=== PATIENT | male | born 1970 | race Caucasian/White ===

== ENCOUNTER 2016-11-21 10:52 | Day surgery (SDC) | payer OTHER ==
[~2016-11-21] VITALS: Ht 162.6 cm; Wt 69.4 kg
[~2016-11-21 10:52] MED LIST: CLEOCIN300 MG PO; NAPROSYN500 MG PO; NEURONTIN300 MG PO; NO HOME MEDS; PERCOCET 5/31 TABLET PO; VALIUM5 MG PO
== END 2016-11-21 12:40 | disposition home or self-care (01) ==
LOC: PAIN 10:52 → SDC 11:45 → PAIN 12:40
DX: M47.26 Other spondylosis with radiculopathy, lumbar region (principal); Z87.891 Personal history of nicotine dependence; G89.29 Other chronic pain; L40.9 Psoriasis, unspecified; Z91.030 Bee allergy status
CPT/HCPCS: J1030; J2250; J3010; S0020

== ENCOUNTER 2016-11-28 07:48 | Day surgery (SDC) | payer OTHER ==
[~2016-11-28] VITALS: Ht 162.6 cm; Wt 69.4 kg
[~2016-11-28 07:48] MED LIST changes: +EPIPEN ADU0.3 MG/0.3 IM
== END 2016-11-28 09:32 | disposition home or self-care (01) ==
LOC: PAIN 07:48 → SDC 08:15 → PAIN 08:15
DX: M47.26 Other spondylosis with radiculopathy, lumbar region (principal); M51.16 Intervertebral disc disorders with radiculopathy, lumbar region; M54.5 Low back pain; G89.29 Other chronic pain; Z87.891 Personal history of nicotine dependence; Z79.891 Long term (current) use of opiate analgesic
CPT/HCPCS: J1030; J2250; J3010; S0020

== ENCOUNTER 2017-01-09 13:24 | Day surgery (SDC) | payer OTHER ==
[~2017-01-09] VITALS: Ht 162.6 cm; Wt 69.4 kg
== END 2017-01-09 15:20 | disposition home or self-care (01) ==
LOC: PAIN 13:24 → SDC 13:45 → PAIN 15:20
PROC: 3E0S33Z Introduction of Anti-inflammatory into Epidural Space, Percutaneous Approach (ICD-10-PCS; principal; 2017-01-09)
DX: M47.26 Other spondylosis with radiculopathy, lumbar region (principal); F41.9 Anxiety disorder, unspecified; G89.29 Other chronic pain; M53.9 Dorsopathy, unspecified; M99.83 Other biomechanical lesions of lumbar region; L40.9 Psoriasis, unspecified; Z87.891 Personal history of nicotine dependence; Z79.899 Other long term (current) drug therapy; Z91.030 Bee allergy status
CPT/HCPCS: J1030; J2250; J3010

== ENCOUNTER 2017-02-06 17:53 | Emergency (ER) | payer OTHER ==
[~2017-02-06] VITALS: Ht 165.1 cm; Wt 67.6 kg
[2017-02-06 18:42] LABS: HEMATOCRIT 45.6 % (38.0-50.0); MCH 30.2 PG (29.0-34.0); MCHC 33.3 G/DL (30.0-36.0); MCV 90.7 FL (86-99); PLATELET COUNT 277 K/uL (156-360); RBC DIS.WIDTH-CV 11.9 % (11.8-14.6); RBC DIS.WIDTH-SD 39.8 % (39-53); RED BLOOD COUNT 5.03 M/uL (4.00-5.50); WHITE BLOOD COUNT 8.9 K/uL (4.1-10.2)
[2017-02-06 18:51] LABS: CHLORIDE 108 mEq/L (99-109); POTASSIUM 3.9 mEq/L (3.7-5.4); SODIUM 146 mEq/L (136-147)
[2017-02-06 18:52] LABS: GLUCOSE 70 mg/dL (70-99)
[2017-02-06 18:54] LABS: ANION GAP 11 MEQ/L (2-14)
[2017-02-06 18:56] LABS: GFR ESTIMATE (CALCULATED) > 59 mL/min/
[2017-02-06 18:57] LABS: UREA NITROGEN (BUN) 15 mg/dL (9-23)
[2017-02-06 19:12] LABS: ADD MIUA? YES; BILIRUBIN NEGATIVE; BLOOD LARGE; COLOR YELLOW ((YELLOW)); GLUCOSE (STRIP) NEGATIVE; KETONES NEGATIVE; LEUKOCYTES NEGATIVE; NITRITE NEGATIVE; PROTEIN (STRIP) NEGATIVE; SPECIFIC GRAVITY 1.018 (1.000-1.030); UROBILINOGEN 0.2 MG/DL (0.2-1.0)
[2017-02-06 19:18] LABS: BACTERIA NONE SEEN /HPF; EPITHELIAL CELLS NONE SEEN /HPF; MUCUS TRACE /LPF; RED BLOOD CELLS TNTC /HPF (0-5); UCUL ADDED? YES
[2017-02-06 21:40] VITALS: BP 132/88
== END 2017-02-06 21:40 | disposition home or self-care (01) ==
LOC: EME 17:53
DX: R10.9 Unspecified abdominal pain (principal); R31.9 Hematuria, unspecified; Z87.442 Personal history of urinary calculi; Z87.891 Personal history of nicotine dependence
CPT/HCPCS: 74176; 80048; 81003; 85027; 87086; 99281; 99285; J3010

== ENCOUNTER 2017-07-27 10:46 | Emergency (ER) | payer BC ==
[~2017-07-27] VITALS: Ht 165.1 cm; Wt 70.8 kg
[2017-07-27 11:25] LABS: MCH 30.7 PG (29.0-34.0); MCHC 33.3 G/DL (30.0-36.0); PLATELET COUNT 243 K/uL (156-360); RBC DIS.WIDTH-CV 11.9 % (11.8-14.6); RED BLOOD COUNT 5.22 M/uL (4.00-5.50); WHITE BLOOD COUNT 7.8 K/uL (4.1-10.2)
[2017-07-27 11:36] LABS: ALBUMIN 4.5 g/dL (3.2-4.8); CHLORIDE 111 mEq/L (99-109); POTASSIUM 5.1 mEq/L (3.7-5.4); SODIUM 144 mEq/L (136-147)
[2017-07-27 11:39] LABS: GLUCOSE 99 mg/dL (70-99); TOTAL PROTEIN 7.3 g/dL (6.4-8.3)
[2017-07-27 11:41] LABS: TOTAL BILIRUBIN 0.7 mg/dL (0.0-1.0)
[2017-07-27 11:42] LABS: ALKALINE PHOSPHATASE 91 IU/L (3-129)
[2017-07-27 11:43] LABS: CREATININE 0.9 mg/dL (0.6-1.3); GFR ESTIMATE (CALCULATED) > 59 mL/min/ (58.99-99999)
[2017-07-27 11:44] LABS: AST (GOT) 20 IU/L (2-34); DIRECT BILIRUBIN 0.2 mg/dL (0.0-0.3); UREA NITROGEN (BUN) 18 mg/dL (9-23)
[2017-07-27 11:45] LABS: ALT (GPT) 20 IU/L (3-49)
[2017-07-27 11:46] LABS: LIPASE 133 U/L (1.0-51.0)
[2017-07-27] MEDS ORDERED: ZOFRAN ODT4 MG PO (12:44)
[2017-07-27] MEDS ORDERED: FLOMAX0.4 MG PO (12:44)
[2017-07-27] MEDS ORDERED: PERCOCET 5/31 TABLET PO (12:44)
[2017-07-27 13:29] LABS: APPEARANCE CLOUDY ((CLEAR)); BILIRUBIN NEGATIVE; BLOOD LARGE; COLOR YELLOW ((YELLOW)); GLUCOSE (STRIP) NEGATIVE; KETONES NEGATIVE; LEUKOCYTES TRACE; NITRITE NEGATIVE; PROTEIN (STRIP) 30; SPECIFIC GRAVITY 1.023 (1.000-1.030)
[2017-07-27 13:36] LABS: BACTERIA RARE /HPF; CALCIUM OXALATE CRYSTALS 3+ /HPF; EPITHELIAL CELLS RARE /HPF; HYALINE CASTS 0-5 /LPF; MUCUS 4+ /LPF; RED BLOOD CELLS TNTC /HPF (0-5); UCUL ADDED? YES
[2017-07-27 13:58] VITALS: BP 132/78
== END 2017-07-27 14:00 | disposition home or self-care (01) ==
LOC: EME 10:46
DX: N13.2 Hydronephrosis with renal and ureteral calculous obstruction (principal); K40.90 Unilateral inguinal hernia, without obstruction or gangrene, not specified as recurrent; Z79.891 Long term (current) use of opiate analgesic; Z87.891 Personal history of nicotine dependence; Z96.0 Presence of urogenital implants; Z87.442 Personal history of urinary calculi
CPT/HCPCS: 74176; 80048; 80076; 81003; 83690; 85027; 87086; 99281; 99285; J1885; J2405; J7030

== ENCOUNTER 2017-10-23 19:52 | Emergency (ER) | payer BC ==
[~2017-10-23] VITALS: Ht 165.1 cm; Wt 67.7 kg
[~2017-10-23 19:52] MED LIST changes: +FLOMAX0.4 MG PO; +ZOFRAN ODT4 MG PO
[2017-10-23 21:06] VITALS: BP 116/85
== END 2017-10-23 21:07 | disposition home or self-care (01) ==
LOC: EME 19:52
DX: S90.122A Contusion of left lesser toe(s) without damage to nail, initial encounter (principal); W22.03XA Walked into furniture, initial encounter
CPT/HCPCS: 73630; 99281; 99284

== ENCOUNTER 2017-11-04 22:43 | Inpatient (IN) | payer BC ==
[~2017-11-04] VITALS: Ht 165.1 cm; Wt 73.6 kg
[2017-11-05 06:15] VITALS: BP 130/70
[2017-11-05 13:00] VITALS: BP 159/90
[2017-11-05 15:17] VITALS: BP 141/84
[2017-11-05 20:10] VITALS: BP 133/81
[2017-11-05 23:45] VITALS: BP 123/69
[2017-11-06 04:07] VITALS: BP 123/75
[2017-11-06 07:52] VITALS: BP 131/84
[2017-11-06 12:09] VITALS: BP 144/87
[2017-11-06 16:21] VITALS: BP 134/85
[2017-11-06 19:54] VITALS: BP 133/86
[2017-11-06 23:36] VITALS: BP 127/81
[2017-11-07 08:04] VITALS: BP 109/65
[2017-11-07 12:29] VITALS: BP 125/71
[2017-11-07 15:42] VITALS: BP 117/77
[2017-11-07] MEDS ORDERED: GABAPENTIN300 MG PO (16:50)
[2017-11-07] MEDS ORDERED: DECADRON2 MG PO (16:50)
[2017-11-07] MEDS ORDERED: PERCOCET 5/31 TABLET PO (16:50)
[2017-11-07] MEDS ORDERED: DIAZEPAM10 MG PO (16:53)
[2017-11-07] MEDS ORDERED: ENDOCET 5-3251 EACH PO (16:57)
== END 2017-11-07 17:57 | disposition home health service (06) | DRG 460 ==
LOC: ENRESERV 22:43 → 2SOUTH 11-05 05:44 → ENRESERV 11-05 10:52 → EDSTATUS 11-05 11:01 → 2SOUTH 11-05 11:02 → SDC 11-05 12:38 → 3EAST 11-05 12:38
PROC: 0SG30A0 Fusion of Lumbosacral Joint with Interbody Fusion Device, Anterior Approach, Anterior Column, Open Approach (ICD-10-PCS; principal; 2017-11-05)
DX: M47.26 Other spondylosis with radiculopathy, lumbar region (principal); M99.03 Segmental and somatic dysfunction of lumbar region; M48.061 Spinal stenosis, lumbar region without neurogenic claudication; M54.9 Dorsalgia, unspecified; R29.898 Other symptoms and signs involving the musculoskeletal system; M21.372 Foot drop, left foot; M46.1 Sacroiliitis, not elsewhere classified; Z87.891 Personal history of nicotine dependence
CPT/HCPCS: 72020; 72100; 76000; 86850; 86900; 86901; C1713; J0131; J0690; J1100; J1170; J1885; J2250; J2405; J2710; J3010; J3480; J7643

== ENCOUNTER 2017-11-21 22:09 | Emergency (ER) | payer BC ==
[~2017-11-21] VITALS: Ht 165.1 cm; Wt 70.6 kg
[~2017-11-21 22:09] MED LIST changes: +DECADRON2 MG PO; +DIAZEPAM10 MG PO; +ENDOCET 5-3251 EACH PO; +GABAPENTIN300 MG PO
[2017-11-21 23:32] LABS: HEMATOCRIT 40.5 % (38.0-50.0); HEMOGLOBIN 13.8 G/DL (12.5-16.6); MCH 31.5 PG (29.0-34.0); MCHC 34.1 G/DL (30.0-36.0); MCV 92.5 FL (86-99); PLATELET COUNT 268 K/uL (156-360); RBC DIS.WIDTH-CV 12.3 % (11.8-14.6); RBC DIS.WIDTH-SD 41.4 % (39-53); RED BLOOD COUNT 4.38 M/uL (4.00-5.50); WHITE BLOOD COUNT 17.5 K/uL (4.1-10.2)
[2017-11-21 23:40] LABS: CHLORIDE 102 mEq/L (99-109); POTASSIUM 4.5 mEq/L (3.7-5.4); SODIUM 140 mEq/L (136-147)
[2017-11-21 23:41] LABS: GLUCOSE 128 mg/dL (70-99)
[2017-11-21 23:45] LABS: CREATININE 0.7 mg/dL (0.6-1.3); GFR ESTIMATE (CALCULATED) > 59 mL/min/ (58.99-99999)
[2017-11-21 23:46] LABS: UREA NITROGEN (BUN) 19 mg/dL (9-23)
[2017-11-22 00:04] VITALS: BP 108/70
== END 2017-11-22 00:05 | disposition home or self-care (01) ==
LOC: EME 22:09
PROVIDERS: Nurse Practitioner Family
DX: M79.662 Pain in left lower leg (principal); M62.838 Other muscle spasm; Z98.1 Arthrodesis status
CPT/HCPCS: 80048; 85027; 93971; 99281; 99284

== ENCOUNTER 2018-01-06 22:55 | Emergency (ER) | payer OTHER ==
[~2018-01-06] VITALS: Ht 157.5 cm; Wt 68.1 kg
[2018-01-06 23:28] LABS: HEMOGLOBIN 14.4 G/DL (12.5-16.6); MCH 30.8 PG (29.0-34.0); MCHC 34.3 G/DL (30.0-36.0); MCV 89.9 FL (86-99); PLATELET COUNT 270 K/uL (156-360); RBC DIS.WIDTH-CV 11.9 % (11.8-14.6); RBC DIS.WIDTH-SD 39.1 % (39-53); RED BLOOD COUNT 4.67 M/uL (4.00-5.50); WHITE BLOOD COUNT 7.9 K/uL (4.1-10.2)
[2018-01-06 23:40] LABS: CHLORIDE 109 mEq/L (99-109); POTASSIUM 3.9 mEq/L (3.7-5.4); SODIUM 145 mEq/L (136-147)
[2018-01-06 23:41] LABS: GLUCOSE 93 mg/dL (70-99)
[2018-01-06 23:45] LABS: CREATININE 0.8 mg/dL (0.6-1.3); GFR ESTIMATE (CALCULATED) > 59 mL/min/ (58.99-99999)
[2018-01-06 23:46] LABS: UREA NITROGEN (BUN) 9 mg/dL (9-23)
[2018-01-07 00:02] LABS: APPEARANCE CLOUDY ((CLEAR)); BILIRUBIN NEGATIVE; BLOOD LARGE; COLOR YELLOW ((YELLOW)); GLUCOSE (STRIP) NEGATIVE; KETONES NEGATIVE; LEUKOCYTES NEGATIVE; NITRITE NEGATIVE; PROTEIN (STRIP) 30; SPECIFIC GRAVITY 1.025 (1.000-1.030)
[2018-01-07 00:16] LABS: BACTERIA NONE SEEN /HPF; CALCIUM OXALATE CRYSTALS 3+ /HPF; EPITHELIAL CELLS NONE SEEN /HPF; MUCUS 4+ /LPF; RED BLOOD CELLS TNTC /HPF (0-5); UCUL ADDED? YES
[2018-01-07] MEDS ORDERED: PERCOCET 5/31 TABLET PO (00:23)
[2018-01-07] MEDS ORDERED: CIPRO500 MG PO (00:23)
[2018-01-07] MEDS ORDERED: ZOFRAN ODT4 MG PO (00:23)
[2018-01-07 00:35] VITALS: BP 129/87
== END 2018-01-07 00:36 | disposition home or self-care (01) ==
LOC: EME 22:55
DX: N13.2 Hydronephrosis with renal and ureteral calculous obstruction (principal); Z87.442 Personal history of urinary calculi; Z87.891 Personal history of nicotine dependence
CPT/HCPCS: 74176; 80048; 81003; 85027; 87086; 99281; 99285; J1885; J2405; J3010; J7030